=== PATIENT | male | born 1960 | race Caucasian/White ===

== ENCOUNTER 2024-04-23 01:55 | Inpatient (IN) | payer OTHER ==
[2024-04-23] MEDS ORDERED: METOCLOPRAMIDE HCL INJECTION 10 MG/2 ML VIAL ONE (03:19)
[2024-04-23] MEDS ORDERED: FAMOTIDINE 20 MG/50 ML IVPB 20 MG/50 ML MG IVPB ONE (03:20)
[2024-04-23] MEDS: SODIUM CHLORIDE 1,000 ML IV STA (03:27)
[2024-04-23] MEDS: FAMOTIDINE 20 MG/50 ML IVPB 20 MG/50 ML MG IVPB ONE (03:27)
[2024-04-23] MEDS: METOCLOPRAMIDE HCL INJECTION 10 MG/2 ML VIAL IVPUSH ONE (03:27)
[2024-04-23 03:29] LABS: HEMATOCRIT 42.7 % (35.4-49); HEMOGLOBIN 14.2 GM/dL (11.7-16.9); MCHC 33.2 g/dl (32.0-35.9); MEAN CELL VOLUME 90.3 fl (80-96); MEAN PLT VOLUME 7.9 fl (7.5-11.1); PLATELET COUNT 348 10^3/uL (134-434); RBC 4.73 M/mm3 (4.00-5.60); WHITE BLOOD COUNT 11.7 K/mm3 (4.0-10.0)
[2024-04-23 03:46] LABS: POTASSIUM 3.8 mmol/L (3.5-5.1)
[2024-04-23 03:49] LABS: ALBUMIN 3.2 g/dl (3.4-5.0); BLOOD UREA NITROGEN 21.3 mg/dL (7-18); CALCIUM 9.8 mg/dL (8.5-10.1)
[2024-04-23 03:52] LABS: CREATININE 1.3 mg/dL (0.55-1.3)
[2024-04-23 03:54] LABS: BILIRUBIN,TOTAL 0.4 mg/dL (0.2-1); TOT PROT 7.4 g/dl (6.4-8.2)
[2024-04-23 04:10] LABS: EPI CELLS 2 /uL (0-25.1); HYALINE CASTS 0 /uL (0-3.1); PH,URINE 7.5 (5.0-8.0); URINE APPEARANCE CLOUDY; URINE BACTERIA 1796 /uL (0-1359); URINE BILIRUBIN NEGATIVE (NEGATIVE); URINE COLOR YELLOW; URINE GLUCOSE (UA) NEGATIVE (NEGATIVE); URINE KETONE NEGATIVE (NEGATIVE); URINE LEUK ESTERASE 3+ (NEGATIVE); URINE NITRITE NEGATIVE (NEGATIVE); URINE PROTEIN 1+ (NEGATIVE); URINE RBC 23 /uL (0-23.9); URINE UROBILINOGEN 0.2 mg/dL (0.2-1.0); URINE WBC 1217 /uL (0-25.8)
[2024-04-23] MEDS ORDERED: CEFTRIAXONE 1 GM/50 ML BAG ONE (04:48)
[2024-04-23] MEDS: CEFTRIAXONE 1 GM in DEXTROSE 5%-WATER - 50 ML IVPB ONE (05:05)
[2024-04-23 06:46] LABS: ANISOCYTOSIS 1+; MACROCYTOSIS 0
[2024-04-23] MEDS ORDERED: KETOROLAC TROMETHAMINE 30 MG/1 ML VIAL ONE (08:14)
[2024-04-23] MEDS: KETOROLAC TROMETHAMINE 30 MG/1 ML VIAL IVPUSH ONE (08:20)
[2024-04-23] MEDS ORDERED: ACETAMINOPHEN 1000 MG/100 ML BAG IVPB PRN (17:30)
[2024-04-23] MEDS: SODIUM CHLORIDE 1,000 ML IV SCH (20:25)
[2024-04-23] MEDS: HEPARIN NA (PORCINE) 5,000 UNITS/ML 1ML VIAL SQ SCH (21:05)
[2024-04-24] MEDS: GENTAMICIN SO4 80 MG/2 ML VIAL IVPB ONE ×2 (07:31→08:00)
[2024-04-24] MEDS: ceFAZolin SODIUM 1 GM VIAL IVPB ONE ×2 (07:31→07:55)
[2024-04-24] MEDS ORDERED: ROCURONIUM BROMIDE 50 MG/5 ML VIAL ONE (07:37)
[2024-04-24] MEDS ORDERED: PROPOFOL 40 ML ONE (07:37)
[2024-04-24] MEDS ORDERED: FENTANYL CITRATE/PF 50 MCG/ML VIAL ONE ×2 (07:37→08:17)
[2024-04-24] MEDS: LACTATED RINGERS SOLUTION 1,000 ML IV SCH (08:37)
[2024-04-24] MEDS: ACETAMINOPHEN 1000 MG/100 ML BAG IVPB PRN (08:58)
[2024-04-24] MEDS: SODIUM CHLORIDE 1,000 ML IV SCH (09:53)
[2024-04-24] MEDS ORDERED: CEFTRIAXONE 1 GM in DEXTROSE 5%-WATER - 50 ML IVPB SCH (10:00)
[2024-04-24] MEDS: HEPARIN NA (PORCINE) 5,000 UNITS/ML 1ML VIAL SQ SCH (11:17)
[2024-04-24] MEDS: CEFTRIAXONE 1 GM in DEXTROSE 5%-WATER - 50 ML IVPB SCH (11:18)
[2024-04-24] MEDS ORDERED: ARTIFICIAL TEARS OPHTHALMIC DROPS OU PRN (21:55)
[2024-04-25] MEDS: POLYETHYLENE GLYCOL (HEALTHYLAX) 3350 17 GM PACKET PO SCH (10:10)
[2024-04-25 20:03] VITALS: BMI 29.2
[2024-04-25] MEDS: MAG HYDROX/AL HYDROX/SIMETH -MYLANTA- ORAL SUSPENSION PO ONE (23:16)
[2024-04-27 09:26] LABS: HEMATOCRIT 41.1 % (35.4-49); HEMOGLOBIN 14.1 GM/dL (11.7-16.9); MCH 30.6 pg (25.7-33.7); MCHC 34.2 g/dl (32.0-35.9); MEAN CELL VOLUME 89.3 fl (80-96); MEAN PLT VOLUME 7.8 fl (7.5-11.1); PLATELET COUNT 372 10^3/uL (134-434); RBC 4.61 M/mm3 (4.00-5.60); RDW 14.5 % (11.9-15.9); WHITE BLOOD COUNT 10.5 K/mm3 (4.0-10.0)
[2024-04-27 09:50] LABS: ALBUMIN 2.7 g/dl (3.4-5.0); BLOOD UREA NITROGEN 8.1 mg/dL (7-18)
[2024-04-27 09:53] LABS: CREATININE 0.6 mg/dL (0.55-1.3)
[2024-04-27 09:54] LABS: BILIRUBIN,TOTAL 0.7 mg/dL (0.2-1); TOT PROT 5.9 g/dl (6.4-8.2)
[2024-04-27 09:57] LABS: CALCIUM 8.3 mg/dL (8.5-10.1)
[2024-04-27] MEDS: POTASSIUM CHLORIDE ORAL LIQUID 20 MEQ/15 ML PO ONE (12:34)
[2024-04-27] MEDS: FAMOTIDINE 20 MG TABLET PO ONE (13:15)
[2024-04-27 17:47] VITALS: BP 141/81; PULSE 68; RESP 20; TEMP 98.4
== END 2024-04-27 19:25 | DRG 659 ==
LOC: JER 01:55 → JERBED 09:08 → J6S 19:56
PROVIDERS: ADMIT Internal Medicine; ATTEND Internal Medicine
PROC: 0T768DZ Dilation of Right Ureter with Intraluminal Device, Via Natural or Artificial Opening Endoscopic (ICD-10-PCS; principal; 2024-04-24 07:30)
PROC: BT1DZZZ Fluoroscopy of Right Kidney, Ureter and Bladder (ICD-10-PCS; 2024-04-24 07:30)
DX: N13.6 Pyonephrosis (principal); G80.0 Spastic quadriplegic cerebral palsy; K40.20 Bilateral inguinal hernia, without obstruction or gangrene, not specified as recurrent; K57.90 Diverticulosis of intestine, part unspecified, without perforation or abscess without bleeding; R11.2 Nausea with vomiting, unspecified; K76.9 Liver disease, unspecified
CPT/HCPCS: 36415; 71046-TC-FY; 74177-TC; 74178-TC; 76000-TC-FY; 80053; 81003; 82962; 83690; 84484; 85025; 85027; 86850; 86900; 86901; 87086; 93005; 93010; 94760; 99285-25; C1758; C2617; J0131; J1644; Q9967

== ENCOUNTER 2024-09-23 10:30 | Day surgery (SDC) | payer OTHER ==
[2024-09-21 15:41] VITALS: BMI 29.2
[2024-09-23 12:47] VITALS: RESP 16; TEMP 97.4
[2024-09-23 13:25] VITALS: BP 115/64; PULSE 74
== END 2024-09-23 13:23 ==
LOC: FASU-ENDO 10:30
PROVIDERS: ATTEND Internal Medicine Gastroenterology
PROC: 0DB98ZX Excision of Duodenum, Via Natural or Artificial Opening Endoscopic, Diagnostic (ICD-10-PCS; 2024-09-23)
PROC: 0DB78ZX Excision of Stomach, Pylorus, Via Natural or Artificial Opening Endoscopic, Diagnostic (ICD-10-PCS; 2024-09-23)
PROC: 0DB68ZX Excision of Stomach, Via Natural or Artificial Opening Endoscopic, Diagnostic (ICD-10-PCS; 2024-09-23)
PROC: 0DB28ZX Excision of Middle Esophagus, Via Natural or Artificial Opening Endoscopic, Diagnostic (ICD-10-PCS; 2024-09-23)
PROC: 0DB48ZX Excision of Esophagogastric Junction, Via Natural or Artificial Opening Endoscopic, Diagnostic (ICD-10-PCS; 2024-09-23)
PROC: 0DJD8ZZ Inspection of Lower Intestinal Tract, Via Natural or Artificial Opening Endoscopic (ICD-10-PCS; principal; 2024-09-23 11:56)
DX: Z12.11 Encounter for screening for malignant neoplasm of colon (principal); K44.9 Diaphragmatic hernia without obstruction or gangrene; K31.7 Polyp of stomach and duodenum; K29.50 Unspecified chronic gastritis without bleeding; K20.90 Esophagitis, unspecified without bleeding; K64.1 Second degree hemorrhoids
CPT/HCPCS: 43239; G0121; 88305-TC; 88342-TC

== ENCOUNTER 2024-11-16 03:02 | Inpatient (IN) | payer OTHER ==
[2024-11-16] MEDS ORDERED: ACETAMINOPHEN INJECTION 100 ML ONE ×3 (03:57→21:26)
[2024-11-16] MEDS ORDERED: FAMOTIDINE 20 MG/50 ML IVPB 20 MG/50 ML MG IVPB ONE (03:58)
[2024-11-16] MEDS ORDERED: MAG HYDROX/AL HYDROX/SIMETH 30 ML UNIT-DOSE CUP ONE (03:58)
[2024-11-16] MEDS ORDERED: ONDANSETRON 4 MG/2 ML VIAL ONE ×2 (03:58→04:43)
[2024-11-16] MEDS: FAMOTIDINE 20 MG/50 ML IVPB 20 MG/50 ML MG IVPB ONE (04:16)
[2024-11-16] MEDS: ONDANSETRON 4 MG/2 ML VIAL IVPUSH ONE ×2 (04:16→04:56)
[2024-11-16] MEDS: ACETAMINOPHEN 1000 MG/100 ML BAG IVPB ONE ×2 (04:16→10:07)
[2024-11-16] MEDS: MAG HYDROX/AL HYDROX/SIMETH 30 ML UNIT-DOSE CUP PO ONE (04:16)
[2024-11-16 04:34] LABS: HEMATOCRIT 49.8 % (35.4-49); HEMOGLOBIN 16.4 GM/dL (11.7-16.9); MCH 30.1 pg (25.7-33.7); MCHC 32.9 g/dl (32.0-35.9); MEAN CELL VOLUME 91.4 fl (80-96); MEAN PLT VOLUME 8.7 fl (7.5-11.1); PLATELET COUNT 363 10^3/uL (134-434); RBC 5.45 M/mm3 (4.00-5.60); WHITE BLOOD COUNT 19.2 K/mm3 (4.0-10.0)
[2024-11-16 04:53] LABS: POTASSIUM 4.3 mmol/L (3.5-5.1)
[2024-11-16 04:55] LABS: CALCIUM 10.3 mg/dL (8.5-10.1)
[2024-11-16 04:56] LABS: BLOOD UREA NITROGEN 23.5 mg/dL (7-18)
[2024-11-16 04:59] LABS: CREATININE 0.9 mg/dL (0.55-1.3)
[2024-11-16 05:00] LABS: BILIRUBIN,TOTAL 0.6 mg/dL (0.2-1); TOT PROT 8.4 g/dl (6.4-8.2)
[2024-11-16] MEDS ORDERED: morphine SULFATE 4 MG/ML VIAL ONE ×2 (06:25→09:47)
[2024-11-16] MEDS: morphine CARPU-JECT 4 MG/1 ML DISP.SYRIN IVPUSH ONE ×2 (06:49→10:38)
[2024-11-16 07:23] LABS: LACTIC ACID 2.1 mmol/L (0.4-2.0)
[2024-11-16 08:14] LABS: INR 1.09 (0.83-1.09); PROTHROMBIN TIME (PATIENT) 12.5 SEC (9.7-13.0)
[2024-11-16 08:17] LABS: ACTIVATED PTT 33.2 SECONDS (25.2-36.5)
[2024-11-16 08:23] LABS: URINE APPEARANCE CLOUDY; URINE BILIRUBIN NEGATIVE (NEGATIVE); URINE COLOR YELLOW; URINE GLUCOSE (UA) NEGATIVE (NEGATIVE)
[2024-11-16 08:24] LABS: PH,URINE 5.5 (5.0-8.0); URINE KETONE 3+ (NEGATIVE); URINE LEUK ESTERASE TRACE (NEGATIVE); URINE NITRITE NEGATIVE (NEGATIVE); URINE PROTEIN 3+ (NEGATIVE)
[2024-11-16] MEDS ORDERED: LIDOCAINE HCL 2% JELLY 6 ML TP ONE (09:17)
[2024-11-16] MEDS ORDERED: PANTOPRAZOLE SODIUM 40 MG/100 ML BAG IVPB ONE ×2 (09:47→10:02)
[2024-11-16] MEDS: SODIUM CHLORIDE 0.9% 500 ML INFUS.BAG IV ONE (09:57)
[2024-11-16] MEDS ORDERED: PANTOPRAZOLE SODIUM 40 MG VIAL ONE (10:09)
[2024-11-16] MEDS: PANTOPRAZOLE SODIUM 40 MG VIAL IVPUSH ONE (10:35)
[2024-11-16] MEDS ORDERED: PIPERACILLIN/TAZOB 4.5 GM 4.5 GM/100 ML BAG IVPB ONE ×2 (11:41→21:26)
[2024-11-16] MEDS: PIPERACILLIN/TAZOB 3.375 GM 4.5 GM in DEXTROSE 5%-WATER - 50 ML IVPB ONE (11:49)
[2024-11-16] MEDS ORDERED: VANCOMYCIN 1 GM PREMIX (F) 1 GM/200 ML BAG ONE (12:45)
[2024-11-16] MEDS: VANCOMYCIN 1,000 MG in DEXTROSE 5%-WATER - 250 ML IVPB ONE (13:07)
[2024-11-16] MEDS: VANCOMYCIN/WATER FOR INJ (PEG) 1,000 MG/200 ML BAG IVPB ONE (13:09)
[2024-11-16] MEDS: AMINO ACIDS 4.25%/D5W 1,000 ML IV SCH (14:56)
[2024-11-16] MEDS: LACTATED RINGERS SOLUTION 1,000 ML/1,000 ML INFUS.BAG IV SCH (14:56)
[2024-11-16] MEDS ORDERED: PIPERACILLIN/TAZOB 3.375 GM 3.375 GM/50 ML BAG IVPB ONE (18:28)
[2024-11-16] MEDS: DEXTROSE 5%-LACTATED RINGERS 1,000 ML IV SCH (18:31)
[2024-11-16] MEDS: PIPERACILLIN/TAZOB 3.375 GM 3.375 GM in DEXTROSE 5%-WATER - 50 ML IVPB SCH (18:38)
[2024-11-16] MEDS ORDERED: MORPHINE SULFATE 2 MG/ML SYRINGE ONE (18:39)
[2024-11-16] MEDS: MORPHINE SULFATE 2 MG/ML SYRINGE IVPUSH PRN (18:48)
[2024-11-16] MEDS: ACETAMINOPHEN 1000 MG/100 ML BAG IVPB PRN (21:35)
[2024-11-16] MEDS: PIPERACILLIN/TAZOB 4.5 GM 4.5 GM/100 ML BAG IVPB SCH (22:00)
[2024-11-16] MEDS ORDERED: diazePAM CARPU-JECT 10 MG/2 ML DISP.SYRIN ONE (23:02)
[2024-11-16] MEDS: diazePAM CARPU-JECT 10 MG/2 ML DISP.SYRIN IVPUSH ONE (23:12)
[2024-11-17] MEDS ORDERED: FAMOTIDINE 10 MG/ML VIAL IVPB ONE (00:14)
[2024-11-17] MEDS: FAMOTIDINE 20 MG/50 ML IVPB 20 MG/50 ML MG IVPB ONE (00:29)
[2024-11-17 04:25] VITALS: BMI 28.5
[2024-11-17 07:03] LABS: POTASSIUM 3.5 mmol/L (3.5-5.1)
[2024-11-17 07:09] LABS: BLOOD UREA NITROGEN 20.1 mg/dL (7-18)
[2024-11-17 07:12] LABS: CREATININE 0.9 mg/dL (0.55-1.3)
[2024-11-17 07:13] LABS: PHOSPHOROUS 2.5 mg/dL (2.5-4.9)
[2024-11-17 07:14] LABS: ALBUMIN 2.7 g/dl (3.4-5.0); BILIRUBIN,TOTAL 0.6 mg/dL (0.2-1); CALCIUM 8.7 mg/dL (8.5-10.1); TOT PROT 6.2 g/dl (6.4-8.2)
[2024-11-17 07:15] LABS: BASO % 0.1 % (0-2.0); HEMATOCRIT 43.7 % (35.4-49); HEMOGLOBIN 14.7 GM/dL (11.7-16.9); LYMPH % 5.8 % (8-40); MCH 30.5 pg (25.7-33.7); MCHC 33.7 g/dl (32.0-35.9); MEAN CELL VOLUME 90.6 fl (80-96); MEAN PLT VOLUME 8.8 fl (7.5-11.1); MONO % 4.9 % (3.8-10.2); NEUT % 89.2 % (42.8-82.8); PLATELET COUNT 300 10^3/uL (134-434); RBC 4.82 M/mm3 (4.00-5.60); RDW 14.6 % (11.9-15.9); WHITE BLOOD COUNT 13.1 K/mm3 (4.0-10.0)
[2024-11-17] MEDS ORDERED: guaiFENesin/D-METHORPHAN HB 10 ML UNIT-DOSE CUPS PO PRN (10:50)
[2024-11-17] MEDS: BISACODYL 10 MG SUPP.RECT PR ONE (12:06)
[2024-11-17] MEDS: ENOXAPARIN NA (PORCINE) 40 MG/0.4 ML DISP.SYRIN SQ SCH (18:51)
[2024-11-18 07:51] LABS: POTASSIUM 3.4 mmol/L (3.5-5.1)
[2024-11-18 08:02] LABS: ALBUMIN 2.5 g/dl (3.4-5.0); BLOOD UREA NITROGEN 17.6 mg/dL (7-18); CALCIUM 8.5 mg/dL (8.5-10.1)
[2024-11-18 08:04] LABS: MAGNESIUM 2.3 mg/dL (1.8-2.4)
[2024-11-18 08:06] LABS: CREATININE 0.7 mg/dL (0.55-1.3); PHOSPHOROUS 1.9 mg/dL (2.5-4.9)
[2024-11-18 08:08] LABS: BILIRUBIN,TOTAL 0.8 mg/dL (0.2-1); TOT PROT 5.9 g/dl (6.4-8.2)
[2024-11-18 08:22] LABS: BASO % 0.3 % (0-2.0); EOS % 0.1 % (0-4.5); HEMATOCRIT 41.2 % (35.4-49); HEMOGLOBIN 13.7 GM/dL (11.7-16.9); LYMPH % 7.6 % (8-40); MCH 30.2 pg (25.7-33.7); MCHC 33.2 g/dl (32.0-35.9); MEAN CELL VOLUME 91.2 fl (80-96); MEAN PLT VOLUME 9.2 fl (7.5-11.1); MONO % 6.6 % (3.8-10.2); NEUT % 85.4 % (42.8-82.8); PLATELET COUNT 259 10^3/uL (134-434); RBC 4.52 M/mm3 (4.00-5.60); RDW 14.6 % (11.9-15.9); WHITE BLOOD COUNT 9.5 K/mm3 (4.0-10.0)
[2024-11-18] MEDS: ERTAPENEM SODIUM 1 GM in SODIUM CHLORIDE 50 ML IVPB SCH (14:13)
[2024-11-18] MEDS: SODIUM PHOSPHATE/NA BIPHOS 133 ML ENEMA RC ONE (14:14)
[2024-11-18] MEDS: POTASSIUM PHOSPHATE 30 MM in SODIUM CHLORIDE 500 ML IVPB ONE (21:58)
[2024-11-18] MEDS: diazePAM CARPU-JECT 10 MG/2 ML DISP.SYRIN IVPUSH ONE (22:40)
[2024-11-19 07:49] LABS: HEMATOCRIT 42.2 % (35.4-49); MCH 30.1 pg (25.7-33.7); MCHC 33.2 g/dl (32.0-35.9); MEAN CELL VOLUME 90.9 fl (80-96); MEAN PLT VOLUME 8.3 fl (7.5-11.1); PLATELET COUNT 292 10^3/uL (134-434); RBC 4.64 M/mm3 (4.00-5.60); RDW 14.5 % (11.9-15.9); WHITE BLOOD COUNT 11.6 K/mm3 (4.0-10.0)
[2024-11-19 08:08] LABS: POTASSIUM 3.4 mmol/L (3.5-5.1)
[2024-11-19 08:10] LABS: BLOOD UREA NITROGEN 12.2 mg/dL (7-18); CALCIUM 8.6 mg/dL (8.5-10.1)
[2024-11-19 08:13] LABS: CREATININE 0.7 mg/dL (0.55-1.3)
[2024-11-19 08:14] LABS: PHOSPHOROUS 3.5 mg/dL (2.5-4.9)
[2024-11-19] MEDS: DEXTROSE 5%-LACTATED RINGERS 1,000 ML IV SCH (09:03)
[2024-11-19] MEDS: AMINO ACIDS 4.25%/D5W 1,000 ML IV SCH ×2 (14:50→19:35)
[2024-11-19] MEDS: KCL 10 MEQ IVPB 10 MEQ/100 ML INFUS.BAG IVPB SCH (20:47)
[2024-11-19] MEDS: diazePAM 2 MG TABLET NGT ONE (22:15)
[2024-11-20] MEDS: IOHEXOL (OMNIPAQUE IV) 350 MG/ML - 100 ML BOTTLE PO ONE (07:27)
[2024-11-20 07:54] LABS: HEMATOCRIT 42.3 % (35.4-49); HEMOGLOBIN 14.2 GM/dL (11.7-16.9); MCH 30.3 pg (25.7-33.7); MCHC 33.6 g/dl (32.0-35.9); MEAN CELL VOLUME 90.1 fl (80-96); MEAN PLT VOLUME 8.7 fl (7.5-11.1); PLATELET COUNT 304 10^3/uL (134-434); RDW 14.4 % (11.9-15.9)
[2024-11-20 08:04] LABS: CALCIUM 8.7 mg/dL (8.5-10.1)
[2024-11-20 08:05] LABS: BLOOD UREA NITROGEN 25.4 mg/dL (7-18)
[2024-11-20 08:09] LABS: CREATININE 0.6 mg/dL (0.55-1.3)
[2024-11-20 08:35] LABS: BASO % 0.5 % (0-2.0); EOS % 0.2 % (0-4.5); HEMATOCRIT 44.2 % (35.4-49); HEMOGLOBIN 14.1 GM/dL (11.7-16.9); LYMPH % 9.3 % (8-40); MCH 29.3 pg (25.7-33.7); MEAN CELL VOLUME 91.4 fl (80-96); MEAN PLT VOLUME 8.7 fl (7.5-11.1); PLATELET COUNT 319 10^3/uL (134-434); RBC 4.83 M/mm3 (4.00-5.60); RDW 14.8 % (11.9-15.9); WHITE BLOOD COUNT 13.9 K/mm3 (4.0-10.0)
[2024-11-20] MEDS: KCL 10 MEQ IVPB 10 MEQ/100 ML INFUS.BAG IVPB SCH ×2 (09:12→15:43)
[2024-11-20 13:13] LABS: MAGNESIUM 2.2 mg/dL (1.8-2.4)
[2024-11-20 13:17] LABS: PHOSPHOROUS 2.1 mg/dL (2.5-4.9)
[2024-11-20] MEDS: POTASSIUM CHLORIDE 30 MEQ in AMINO ACIDS 4.25%/D5W 1,000 ML IV SCH (21:59)
[2024-11-20] MEDS: ATORVASTATIN CA 40 MG TABLET (FP) PO SCH (22:00)
[2024-11-20] MEDS: BACLOFEN 10 MG TABLET (FP) PO SCH (22:00)
[2024-11-20] MEDS: diazePAM CARPU-JECT 10 MG/2 ML DISP.SYRIN IVPUSH ONE (22:00)
[2024-11-21 08:18] LABS: HEMOGLOBIN 14.2 GM/dL (11.7-16.9); MCH 29.7 pg (25.7-33.7); MEAN CELL VOLUME 89.8 fl (80-96); MEAN PLT VOLUME 8.4 fl (7.5-11.1); PLATELET COUNT 315 10^3/uL (134-434); RBC 4.79 M/mm3 (4.00-5.60); RDW 14.7 % (11.9-15.9); WHITE BLOOD COUNT 13.3 K/mm3 (4.0-10.0)
[2024-11-21 08:27] LABS: POTASSIUM 3.3 mmol/L (3.5-5.1)
[2024-11-21 08:54] LABS: CALCIUM 8.7 mg/dL (8.5-10.1)
[2024-11-21 08:55] LABS: ALBUMIN 2.7 g/dl (3.4-5.0); BLOOD UREA NITROGEN 19.1 mg/dL (7-18); MAGNESIUM 2.1 mg/dL (1.8-2.4)
[2024-11-21 08:57] LABS: CREATININE 0.5 mg/dL (0.55-1.3)
[2024-11-21 08:58] LABS: PHOSPHOROUS 1.7 mg/dL (2.5-4.9)
[2024-11-21 09:00] LABS: BILIRUBIN,TOTAL 0.7 mg/dL (0.2-1); TOT PROT 6.3 g/dl (6.4-8.2)
[2024-11-21] MEDS: MINERAL OIL ENEMA 133 ML ENEMA RC ONE (12:22)
[2024-11-21] MEDS ORDERED: SODIUM CHLORIDE 500 ML IV STA (18:38)
[2024-11-21] MEDS: diazePAM CARPU-JECT 10 MG/2 ML DISP.SYRIN IVPUSH PRN (21:51)
[2024-11-21] MEDS: guaiFENesin/D-METHORPHAN HB 10 ML UNIT-DOSE CUPS PO PRN (21:51)
[2024-11-21] MEDS: NAPH,MB-DB/K PH,MBDB POWDER PACKET PO SCH (21:52)
[2024-11-22 07:09] LABS: BASO % 0.3 % (0-2.0); EOS % 1.2 % (0-4.5); HEMATOCRIT 44.4 % (35.4-49); HEMOGLOBIN 14.2 GM/dL (11.7-16.9); LYMPH % 9.7 % (8-40); MCH 29.1 pg (25.7-33.7); MCHC 31.9 g/dl (32.0-35.9); MEAN CELL VOLUME 91.4 fl (80-96); MEAN PLT VOLUME 8.5 fl (7.5-11.1); MONO % 7.1 % (3.8-10.2); NEUT % 81.7 % (42.8-82.8); PLATELET COUNT 335 10^3/uL (134-434); RBC 4.86 M/mm3 (4.00-5.60); RDW 14.4 % (11.9-15.9); WHITE BLOOD COUNT 13.4 K/mm3 (4.0-10.0)
[2024-11-22 07:30] LABS: POTASSIUM 3.3 mmol/L (3.5-5.1)
[2024-11-22 07:41] LABS: BLOOD UREA NITROGEN 20.9 mg/dL (7-18); CALCIUM 8.9 mg/dL (8.5-10.1)
[2024-11-22 07:42] LABS: ALBUMIN 2.8 g/dl (3.4-5.0)
[2024-11-22 07:43] LABS: TOT PROT 6.3 g/dl (6.4-8.2)
[2024-11-22 07:44] LABS: BILIRUBIN,TOTAL 0.6 mg/dL (0.2-1)
[2024-11-22 07:45] LABS: CREATININE 0.5 mg/dL (0.55-1.3); PHOSPHOROUS 2.4 mg/dL (2.5-4.9)
[2024-11-22] MEDS: PANTOPRAZOLE SODIUM 40 MG VIAL IVPUSH SCH (10:48)
[2024-11-22] MEDS: ALBUTEROL SO4 2.5/IPRATROPIUM 0.5 INH SOL 3 ML VIAL.NEB. NEB SCH (11:15)
[2024-11-23 07:04] LABS: POTASSIUM 3.5 mmol/L (3.5-5.1)
[2024-11-23 07:09] LABS: CALCIUM 8.9 mg/dL (8.5-10.1)
[2024-11-23 07:10] LABS: BLOOD UREA NITROGEN 21.8 mg/dL (7-18)
[2024-11-23 07:13] LABS: CREATININE 0.5 mg/dL (0.55-1.3); PHOSPHOROUS 3.2 mg/dL (2.5-4.9)
[2024-11-23 07:31] LABS: BASO % 0.6 % (0-2.0); EOS % 2.7 % (0-4.5); HEMATOCRIT 45.9 % (35.4-49); HEMOGLOBIN 14.6 GM/dL (11.7-16.9); LYMPH % 11.6 % (8-40); MCH 28.6 pg (25.7-33.7); MCHC 31.8 g/dl (32.0-35.9); MEAN CELL VOLUME 90.1 fl (80-96); MEAN PLT VOLUME 8.6 fl (7.5-11.1); MONO % 6.6 % (3.8-10.2); NEUT % 78.5 % (42.8-82.8); PLATELET COUNT 366 10^3/uL (134-434); RDW 15.2 % (11.9-15.9)
[2024-11-23 07:33] LABS: INR 1.16 (0.83-1.09); PROTHROMBIN TIME (PATIENT) 13.3 SEC (9.7-13.0)
[2024-11-24 07:26] LABS: BASO % 0.7 % (0-2.0); EOS % 2.5 % (0-4.5); HEMATOCRIT 45.3 % (35.4-49); HEMOGLOBIN 14.4 GM/dL (11.7-16.9); LYMPH % 12.3 % (8-40); MCHC 31.7 g/dl (32.0-35.9); MEAN CELL VOLUME 91.4 fl (80-96); MEAN PLT VOLUME 8.8 fl (7.5-11.1); MONO % 5.4 % (3.8-10.2); NEUT % 79.1 % (42.8-82.8); PLATELET COUNT 410 10^3/uL (134-434); RBC 4.96 M/mm3 (4.00-5.60); RDW 14.7 % (11.9-15.9); WHITE BLOOD COUNT 13.5 K/mm3 (4.0-10.0)
[2024-11-24 07:32] LABS: HEMATOCRIT 45.1 % (35.4-49); HEMOGLOBIN 14.3 GM/dL (11.7-16.9); MCHC 31.6 g/dl (32.0-35.9); MEAN CELL VOLUME 91.6 fl (80-96); MEAN PLT VOLUME 8.9 fl (7.5-11.1); PLATELET COUNT 415 10^3/uL (134-434); RBC 4.93 M/mm3 (4.00-5.60); RDW 15.1 % (11.9-15.9); WHITE BLOOD COUNT 13.2 K/mm3 (4.0-10.0)
[2024-11-24 07:45] LABS: POTASSIUM 3.7 mmol/L (3.5-5.1)
[2024-11-24 07:48] LABS: ALBUMIN 2.9 g/dl (3.4-5.0); BLOOD UREA NITROGEN 25.6 mg/dL (7-18); MAGNESIUM 1.9 mg/dL (1.8-2.4)
[2024-11-24 07:51] LABS: CREATININE 0.7 mg/dL (0.55-1.3); PHOSPHOROUS 2.5 mg/dL (2.5-4.9)
[2024-11-24 07:52] LABS: BILIRUBIN,TOTAL 0.7 mg/dL (0.2-1); TOT PROT 6.8 g/dl (6.4-8.2)
[2024-11-24] MEDS ORDERED: MIDAZOLAM HCL 2 MG/2 ML SINGLE DOSE VIAL ONE ×3 (14:06→19:44)
[2024-11-24] MEDS ORDERED: ROCURONIUM BROMIDE 50 MG/5 ML SYRINGE ONE ×3 (14:06→17:11)
[2024-11-24] MEDS ORDERED: PROPOFOL 20 ML ONE (14:07)
[2024-11-24] MEDS ORDERED: DEXAMETHASONE SOD PHOSPHATE 4 MG/1 ML VIAL ONE ×2 (14:07→19:27)
[2024-11-24] MEDS ORDERED: ONDANSETRON 4 MG/2 ML VIAL ONE (14:07)
[2024-11-24] MEDS ORDERED: KETOROLAC TROMETHAMINE 30 MG/1 ML VIAL ONE (14:07)
[2024-11-24] MEDS ORDERED: LIDOCAINE HCL/PF 2% SDV 5ML VIAL ONE (14:07)
[2024-11-24] MEDS ORDERED: HEPARIN NA (PORCINE) 5,000 UNITS/ML 1ML VIAL ONE ×2 (14:07→14:09)
[2024-11-24] MEDS ORDERED: BUPIVACAINE HCL/PF 0.25% (2.5MG/ML) 10 ML VIAL ONE (14:09)
[2024-11-24] MEDS ORDERED: CEFOXITIN SODIUM/DEXTROSE,ISO 2 GM/50 ML BAG ONE (14:09)
[2024-11-24] MEDS ORDERED: ACETAMINOPHEN INJECTION 100 ML ONE (14:10)
[2024-11-24] MEDS: cefOXitin SODIUM 2 GM VIAL (RESTRICTED TO ID) IVPB ONE (15:20)
[2024-11-24] MEDS: BUPIVACAINE HCL/PF 0.25% (2.5MG/ML) 10 ML VIAL IJ ONE (15:27)
[2024-11-24] MEDS ORDERED: MAGNESIUM SULF 50% (8.12 MEQ/2 ML-1 GM VIAL) ONE (15:32)
[2024-11-24] MEDS ORDERED: GLYCOPYRROLATE 0.2 MG/1 ML VIAL ONE (15:38)
[2024-11-24] MEDS ORDERED: HYDROmorphone HCl 2 MG/ML VIAL ONE (15:39)
[2024-11-24] MEDS ORDERED: METOPROLOL TARTRATE 5 MG/5 ML VIAL ONE (15:53)
[2024-11-24] MEDS ORDERED: PHENYLEPHRINE HCL 10 MG/1 ML SINGLE DOSE VIAL ONE (16:14)
[2024-11-24] MEDS ORDERED: LACTATED RINGERS SOLUTION 1,000 ML IV SCH (18:00)
[2024-11-24] MEDS ORDERED: TRANEXAMIC ACID 1000 MG/10 ML VIAL ONE (18:06)
[2024-11-24] MEDS ORDERED: ALBUMIN HUMAN 25% 12.5 GM/50 ML VIAL IV ONE ×2 (18:30→20:23)
[2024-11-24] MEDS ORDERED: SUGAMMADEX SODIUM 200 MG/2 ML VIAL ONE (19:24)
[2024-11-24] MEDS ORDERED: METOCLOPRAMIDE HCL INJECTION 10 MG/2 ML VIAL ONE (19:25)
[2024-11-24] MEDS: MIDAZOLAM HCL 2 MG/2 ML SINGLE DOSE VIAL IVPUSH ONE (21:05)
[2024-11-24] MEDS: LACTATED RINGERS SOLUTION 1,000 ML IV SCH (21:46)
[2024-11-24] MEDS: ATORVASTATIN CA 40 MG TABLET (FP) PO SCH (21:46)
[2024-11-24] MEDS: POTASSIUM CHLORIDE 30 MEQ in AMINO ACIDS 4.25%/D5W 1,000 ML IV SCH (21:46)
[2024-11-24] MEDS: ONDANSETRON 4 MG/2 ML VIAL IVPUSH SCH (21:49)
[2024-11-24 21:58] LABS: HEMATOCRIT 37.5 % (35.4-49); HEMOGLOBIN 12.2 GM/dL (11.7-16.9); MCH 29.4 pg (25.7-33.7); MCHC 32.5 g/dl (32.0-35.9); MEAN CELL VOLUME 90.4 fl (80-96); MEAN PLT VOLUME 8.1 fl (7.5-11.1); PLATELET COUNT 332 10^3/uL (134-434); RBC 4.15 M/mm3 (4.00-5.60); RDW 14.6 % (11.9-15.9); WHITE BLOOD COUNT 23.6 K/mm3 (4.0-10.0)
[2024-11-24 22:08] LABS: INR 1.17 (0.83-1.09); PROTHROMBIN TIME (PATIENT) 13.4 SEC (9.7-13.0)
[2024-11-24 22:21] LABS: POTASSIUM 4.3 mmol/L (3.5-5.1)
[2024-11-24 22:22] LABS: CALCIUM 8.5 mg/dL (8.5-10.1)
[2024-11-24 22:23] LABS: BLOOD UREA NITROGEN 22.3 mg/dL (7-18)
[2024-11-24 22:26] LABS: CREATININE 0.6 mg/dL (0.55-1.3)
[2024-11-24 22:27] LABS: PHOSPHOROUS 3.4 mg/dL (2.5-4.9)
[2024-11-25] MEDS: METOCLOPRAMIDE HCL INJECTION 10 MG/2 ML VIAL IVPUSH SCH (02:51)
[2024-11-25] MEDS: CEFOXITIN SODIUM/DEXTROSE,ISO 2 GM/50 ML BAG IVPB SCH (03:03)
[2024-11-25] MEDS: DEXMEDETOMIDINE PREMIX 400 MCG/100 ML BAG IVPB SCH (06:05)
[2024-11-25] MEDS: ALBUTEROL SO4 2.5/IPRATROPIUM 0.5 INH SOL 3 ML VIAL.NEB. NEB SCH (07:40)
[2024-11-25 07:56] LABS: HEMATOCRIT 38.9 % (35.4-49); HEMOGLOBIN 12.5 GM/dL (11.7-16.9); MCH 29.2 pg (25.7-33.7); MEAN PLT VOLUME 8.9 fl (7.5-11.1); PLATELET COUNT 371 10^3/uL (134-434); RBC 4.28 M/mm3 (4.00-5.60); RDW 14.5 % (11.9-15.9); WHITE BLOOD COUNT 14.8 K/mm3 (4.0-10.0)
[2024-11-25 08:11] LABS: POTASSIUM 4.8 mmol/L (3.5-5.1)
[2024-11-25 08:12] LABS: ALBUMIN 2.8 g/dl (3.4-5.0); BLOOD UREA NITROGEN 16.8 mg/dL (7-18); CALCIUM 8.7 mg/dL (8.5-10.1)
[2024-11-25 08:13] LABS: MAGNESIUM 1.9 mg/dL (1.8-2.4)
[2024-11-25 08:15] LABS: CREATININE 0.8 mg/dL (0.55-1.3)
[2024-11-25 08:16] LABS: PHOSPHOROUS 3.2 mg/dL (2.5-4.9)
[2024-11-25 08:17] LABS: BILIRUBIN,TOTAL 0.6 mg/dL (0.2-1); TOT PROT 5.9 g/dl (6.4-8.2)
[2024-11-25 09:56] LABS: ANISOCYTOSIS 0; HELMET CELLS 0; HOWELL-JOLLY BODIES 0; MACROCYTOSIS 0; OVALOCYTE 0; ROULEAU 0; SICKELED CELLS 0; TARGET CELLS 0; TEAR DROP CELLS 0; TOXIC GRANULATION 0
[2024-11-25] MEDS: ERTAPENEM SODIUM 1 GM in SODIUM CHLORIDE 50 ML IVPB SCH (10:24)
[2024-11-25] MEDS: PANTOPRAZOLE SODIUM 40 MG VIAL IVPUSH SCH (10:24)
[2024-11-25] MEDS ORDERED: ONDANSETRON 4 MG/2 ML VIAL IVPUSH PRN (13:40)
[2024-11-25] MEDS: AMINO ACIDS 4.25%/D5W 1,000 ML IV SCH ×2 (14:39)
[2024-11-25] MEDS: ONDANSETRON 4 MG/2 ML VIAL IVPUSH SCH (19:01)
[2024-11-25] MEDS: SIMETHICONE 80 MG TAB.CHEW (FP) PO SCH (21:43)
[2024-11-25] MEDS: diazePAM CARPU-JECT 10 MG/2 ML DISP.SYRIN IVPUSH PRN (22:02)
[2024-11-26 06:52] LABS: HEMATOCRIT 35.7 % (35.4-49); HEMOGLOBIN 11.8 GM/dL (11.7-16.9); MCH 29.9 pg (25.7-33.7); MCHC 33.1 g/dl (32.0-35.9); MEAN CELL VOLUME 90.4 fl (80-96); MEAN PLT VOLUME 8.5 fl (7.5-11.1); PLATELET COUNT 314 10^3/uL (134-434); POTASSIUM 3.8 mmol/L (3.5-5.1); RBC 3.95 M/mm3 (4.00-5.60); RDW 14.3 % (11.9-15.9); WHITE BLOOD COUNT 15.3 K/mm3 (4.0-10.0)
[2024-11-26 06:55] LABS: ALBUMIN 2.3 g/dl (3.4-5.0); CALCIUM 8.2 mg/dL (8.5-10.1)
[2024-11-26 06:56] LABS: BLOOD UREA NITROGEN 15.7 mg/dL (7-18)
[2024-11-26 06:59] LABS: CREATININE 0.5 mg/dL (0.55-1.3)
[2024-11-26 07:00] LABS: BILIRUBIN,TOTAL 0.5 mg/dL (0.2-1); TOT PROT 5.3 g/dl (6.4-8.2)
[2024-11-26] MEDS: guaiFENesin/D-METHORPHAN HB 10 ML UNIT-DOSE CUPS PO PRN (09:11)
[2024-11-26] MEDS: ACETAMINOPHEN 1000 MG/100 ML BAG IVPB ONE (09:11)
[2024-11-26 09:37] LABS: MAGNESIUM 1.8 mg/dL (1.8-2.4)
[2024-11-26] MEDS ORDERED: ACETYLCYSTEINE 20% 200MG/ML 30 ML VIAL *FOR ORAL / INH USE ONLY NEB ONE (10:58)
[2024-11-26] MEDS: morphine SULFATE 4 MG/ML VIAL IVPUSH ONE ×2 (11:26→18:40)
[2024-11-26] MEDS: ALBUTEROL SO4 0.083% IH SOL 2.5 MG/3 ML VIAL.NEB. NEB SCH ×2 (11:29→11:42)
[2024-11-26] MEDS: ACETYLCYSTEINE 20% 200MG/ML 4 ML VIAL *FOR ORAL / INH USE ONLY NEB SCH (11:29)
[2024-11-26] MEDS: ACETYLCYSTEINE 20% 200MG/ML 4 ML VIAL *FOR ORAL / INH USE ONLY NEB ONE (11:39)
[2024-11-26] MEDS: POTASSIUM PHOSPHATE 30 MM in SODIUM CHLORIDE 250 ML IVPB ONE (14:07)
[2024-11-27] MEDS: ACETYLCYSTEINE 20% 200MG/ML 4 ML VIAL *FOR ORAL / INH USE ONLY NEB ONE (03:55)
[2024-11-27] MEDS: ALBUTEROL SO4 0.083% IH SOL 2.5 MG/3 ML VIAL.NEB. NEB ONE (03:58)
[2024-11-27 05:15] LABS: ARTERIAL BLD GAS O2 SATURATION 84.2 % (95-98); ARTERIAL BLOOD GAS BASE EXCESS 2.4 mmol/L (-2-2); ARTERIAL BLOOD GAS PO2 45.8 mmHg (80-100); ARTERIAL BLOOD GAS pH 7.456 (7.350-7.450)
[2024-11-27] MEDS: LACTATED RINGERS SOLUTION 1000 ML INFUS.BAG IV ONE (05:36)
[2024-11-27] MEDS: NOREPINEPHRINE BITARTRATE/D5W 8 MG/250 ML BAG IVPB SCH (05:36)
[2024-11-27 07:01] LABS: HEMATOCRIT 36.2 % (35.4-49); HEMOGLOBIN 11.6 GM/dL (11.7-16.9); MCH 29.3 pg (25.7-33.7); MEAN CELL VOLUME 91.5 fl (80-96); MEAN PLT VOLUME 8.6 fl (7.5-11.1); PLATELET COUNT 373 10^3/uL (134-434); RBC 3.96 M/mm3 (4.00-5.60); RDW 14.3 % (11.9-15.9); WHITE BLOOD COUNT 20.3 K/mm3 (4.0-10.0)
[2024-11-27 07:15] LABS: POTASSIUM 3.9 mmol/L (3.5-5.1)
[2024-11-27 07:19] LABS: CALCIUM 8.4 mg/dL (8.5-10.1)
[2024-11-27 07:20] LABS: ALBUMIN 2.3 g/dl (3.4-5.0); BLOOD UREA NITROGEN 17.6 mg/dL (7-18)
[2024-11-27 07:21] LABS: ARTERIAL BLD GAS O2 SATURATION 92.4 % (95-98); ARTERIAL BLOOD GAS BASE EXCESS 2.3 mmol/L (-2-2); ARTERIAL BLOOD GAS PO2 59.9 mmHg (80-100); ARTERIAL BLOOD GAS pH 7.461 (7.350-7.450)
[2024-11-27 07:23] LABS: CREATININE 0.6 mg/dL (0.55-1.3)
[2024-11-27 07:25] LABS: BILIRUBIN,TOTAL 0.9 mg/dL (0.2-1); TOT PROT 5.4 g/dl (6.4-8.2)
[2024-11-27 07:27] LABS: ALLENS TEST POSITIVE
[2024-11-27 08:41] LABS: ANISOCYTOSIS 0; MACROCYTOSIS 0
[2024-11-27] MEDS ORDERED: RAPID SEQUENCE INTUBATION KIT NR ONE (09:35)
[2024-11-27] MEDS: ENOXAPARIN NA (PORCINE) 40 MG/0.4 ML DISP.SYRIN SQ SCH (10:12)
[2024-11-27] MEDS: morphine SULFATE 4 MG/ML VIAL IVPUSH PRN (17:10)
[2024-11-27] MEDS: PIPERACILLIN/TAZOB 3.375 GM 3.375 GM in DEXTROSE 5%-WATER - 50 ML IVPB SCH (17:11)
[2024-11-28] MEDS: ACETAMINOPHEN 1000 MG/100 ML BAG IVPB PRN (00:18)
[2024-11-28 07:30] LABS: VENOUS BASE EXCESS 3.5 mmol/L (-2-2); VENOUS O2 SATURATION 71.1 % (70-80); VENOUS PCO2 48.9 mmHg (38-52); VENOUS PH 7.395 (7.310-7.410)
[2024-11-28 07:39] LABS: BASO % 0.7 % (0-2.0); HEMATOCRIT 36.1 % (35.4-49); HEMOGLOBIN 11.5 GM/dL (11.7-16.9); MEAN CELL VOLUME 90.7 fl (80-96); MEAN PLT VOLUME 8.8 fl (7.5-11.1); NEUT % 83.3 % (42.8-82.8); PLATELET COUNT 336 10^3/uL (134-434); RBC 3.98 M/mm3 (4.00-5.60); RDW 14.8 % (11.9-15.9); WHITE BLOOD COUNT 13.2 K/mm3 (4.0-10.0)
[2024-11-28 08:56] LABS: ALBUMIN 2.4 g/dl (3.4-5.0); BILIRUBIN,TOTAL 0.6 mg/dL (0.2-1); BLOOD UREA NITROGEN 21.2 mg/dL (7-18); CALCIUM 8.7 mg/dL (8.5-10.1); CREATININE 0.6 mg/dL (0.55-1.3); POTASSIUM 3.8 mmol/L (3.5-5.1); TOT PROT 5.8 g/dl (6.4-8.2)
[2024-11-28] MEDS: POLYETHYLENE GLYCOL (HEALTHYLAX) 3350 17 GM PACKET PO ONE (12:47)
[2024-11-28] MEDS: BISACODYL 5 MG TABLET.DR (FP) PO ONE (12:47)
[2024-11-28] MEDS: DOCUSATE SODIUM 100 MG CAPSULE (FP) PO SCH (22:01)
[2024-11-28] MEDS: POLYETHYLENE GLYCOL (HEALTHYLAX) 3350 17 GM PACKET PO SCH (22:02)
[2024-11-29 08:17] LABS: BASO % 0.6 % (0-2.0); EOS % 3.4 % (0-4.5); HEMATOCRIT 33.7 % (35.4-49); HEMOGLOBIN 11.4 GM/dL (11.7-16.9); MCHC 33.7 g/dl (32.0-35.9); MEAN PLT VOLUME 8.5 fl (7.5-11.1); PLATELET COUNT 357 10^3/uL (134-434); RBC 3.79 M/mm3 (4.00-5.60); RDW 14.6 % (11.9-15.9); WHITE BLOOD COUNT 11.4 K/mm3 (4.0-10.0)
[2024-11-29 08:35] LABS: POTASSIUM 3.5 mmol/L (3.5-5.1)
[2024-11-29 08:43] LABS: ALBUMIN 2.3 g/dl (3.4-5.0); BLOOD UREA NITROGEN 19.4 mg/dL (7-18)
[2024-11-29 08:44] LABS: BILIRUBIN,TOTAL 0.5 mg/dL (0.2-1); TOT PROT 5.4 g/dl (6.4-8.2)
[2024-11-29 08:45] LABS: CALCIUM 8.8 mg/dL (8.5-10.1); CREATININE 0.6 mg/dL (0.55-1.3)
[2024-11-29] MEDS: PANTOPRAZOLE 40 MG TABLET PO SCH (09:02)
[2024-11-29] MEDS: POTASSIUM CHLORIDE ORAL LIQUID 20 MEQ/15 ML PO ONE (11:43)
[2024-11-29] MEDS: VANCOMYCIN 1 GM PREMIX (F) 1 GM/200 ML BAG IVPB SCH (15:25)
[2024-11-29] MEDS: ACETAMINOPHEN 1000 MG/100 ML BAG IVPB PRN (23:48)
[2024-11-30 08:00] LABS: EOS % 4.7 % (0-4.5); HEMATOCRIT 32.9 % (35.4-49); HEMOGLOBIN 10.9 GM/dL (11.7-16.9); LYMPH % 13.9 % (8-40); MCH 29.6 pg (25.7-33.7); MCHC 33.2 g/dl (32.0-35.9); MEAN CELL VOLUME 89.4 fl (80-96); MEAN PLT VOLUME 8.2 fl (7.5-11.1); MONO % 10.6 % (3.8-10.2); NEUT % 69.8 % (42.8-82.8); PLATELET COUNT 380 10^3/uL (134-434); RBC 3.68 M/mm3 (4.00-5.60); RDW 14.7 % (11.9-15.9); WHITE BLOOD COUNT 9.8 K/mm3 (4.0-10.0)
[2024-11-30 08:20] LABS: POTASSIUM 3.9 mmol/L (3.5-5.1)
[2024-11-30 08:27] LABS: ALBUMIN 2.2 g/dl (3.4-5.0); BLOOD UREA NITROGEN 18.3 mg/dL (7-18); CALCIUM 8.7 mg/dL (8.5-10.1); MAGNESIUM 1.8 mg/dL (1.8-2.4)
[2024-11-30 08:30] LABS: CREATININE 0.6 mg/dL (0.55-1.3)
[2024-11-30 08:31] LABS: BILIRUBIN,TOTAL 0.4 mg/dL (0.2-1); TOT PROT 5.5 g/dl (6.4-8.2)
[2024-11-30] MEDS: diazePAM CARPU-JECT 10 MG/2 ML DISP.SYRIN IVPUSH PRN (22:46)
[2024-12-01 07:58] LABS: HEMATOCRIT 32.6 % (35.4-49); HEMOGLOBIN 11.1 GM/dL (11.7-16.9); MCH 30.3 pg (25.7-33.7); MEAN CELL VOLUME 89.3 fl (80-96); MEAN PLT VOLUME 8.3 fl (7.5-11.1); PLATELET COUNT 383 10^3/uL (134-434); RBC 3.65 M/mm3 (4.00-5.60); RDW 14.8 % (11.9-15.9); WHITE BLOOD COUNT 9.7 K/mm3 (4.0-10.0)
[2024-12-01 08:43] LABS: POTASSIUM 3.8 mmol/L (3.5-5.1)
[2024-12-01 08:56] LABS: ALBUMIN 2.4 g/dl (3.4-5.0)
[2024-12-01 08:57] LABS: BLOOD UREA NITROGEN 11.9 mg/dL (7-18); MAGNESIUM 1.8 mg/dL (1.8-2.4)
[2024-12-01 09:00] LABS: CREATININE 0.6 mg/dL (0.55-1.3)
[2024-12-01 09:01] LABS: BILIRUBIN,TOTAL 0.6 mg/dL (0.2-1); TOT PROT 5.8 g/dl (6.4-8.2)
[2024-12-01 09:19] LABS: ANISOCYTOSIS 0; MACROCYTOSIS 0
[2024-12-01] MEDS ORDERED: POLYETHYLENE GLYCOL (HEALTHYLAX) 3350 17 GM PACKET PO PRN (19:54)
[2024-12-02] MEDS: ALBUTEROL SO4 0.083% IH SOL 2.5 MG/3 ML VIAL.NEB. NEB SCH (07:35)
[2024-12-02] MEDS: ACETYLCYSTEINE 20% 200MG/ML 4 ML VIAL *FOR ORAL / INH USE ONLY NEB SCH (07:35)
[2024-12-02 08:53] LABS: HEMATOCRIT 31.5 % (35.4-49); HEMOGLOBIN 10.6 GM/dL (11.7-16.9); MCH 30.1 pg (25.7-33.7); MCHC 33.7 g/dl (32.0-35.9); MEAN CELL VOLUME 89.2 fl (80-96); MEAN PLT VOLUME 8.1 fl (7.5-11.1); PLATELET COUNT 376 10^3/uL (134-434); RBC 3.53 M/mm3 (4.00-5.60); RDW 14.7 % (11.9-15.9); WHITE BLOOD COUNT 8.8 K/mm3 (4.0-10.0)
[2024-12-02 09:17] LABS: POTASSIUM 3.8 mmol/L (3.5-5.1)
[2024-12-02 09:21] LABS: CALCIUM 8.9 mg/dL (8.5-10.1)
[2024-12-02 09:22] LABS: ALBUMIN 2.4 g/dl (3.4-5.0); BLOOD UREA NITROGEN 6.7 mg/dL (7-18)
[2024-12-02 09:25] LABS: CREATININE 0.6 mg/dL (0.55-1.3)
[2024-12-02 09:26] LABS: BILIRUBIN,TOTAL 0.5 mg/dL (0.2-1); TOT PROT 5.7 g/dl (6.4-8.2)
[2024-12-02] MEDS: SIMETHICONE 80 MG TAB.CHEW (FP) PO SCH (10:14)
[2024-12-02] MEDS: VANCOMYCIN 1 GM PREMIX (F) 1 GM/200 ML BAG IVPB SCH (10:14)
[2024-12-02] MEDS: PANTOPRAZOLE 40 MG TABLET PO SCH (10:14)
[2024-12-02] MEDS: ENOXAPARIN NA (PORCINE) 40 MG/0.4 ML DISP.SYRIN SQ SCH (10:14)
[2024-12-02] MEDS: ATORVASTATIN CA 40 MG TABLET (FP) PO SCH (21:45)
[2024-12-02] MEDS: guaiFENesin/D-METHORPHAN HB 10 ML UNIT-DOSE CUPS PO PRN (21:48)
[2024-12-02] MEDS: diazePAM CARPU-JECT 10 MG/2 ML DISP.SYRIN IVPUSH PRN (23:41)
[2024-12-03 08:13] LABS: HEMATOCRIT 33.6 % (35.4-49); HEMOGLOBIN 10.8 GM/dL (11.7-16.9); MCH 29.3 pg (25.7-33.7); MCHC 32.1 g/dl (32.0-35.9); MEAN PLT VOLUME 8.2 fl (7.5-11.1); PLATELET COUNT 402 10^3/uL (134-434); RBC 3.69 M/mm3 (4.00-5.60); RDW 14.4 % (11.9-15.9); WHITE BLOOD COUNT 8.3 K/mm3 (4.0-10.0)
[2024-12-03 08:45] LABS: POTASSIUM 3.7 mmol/L (3.5-5.1)
[2024-12-03 08:48] LABS: CALCIUM 8.8 mg/dL (8.5-10.1)
[2024-12-03 08:49] LABS: BLOOD UREA NITROGEN 6.4 mg/dL (7-18)
[2024-12-03 08:52] LABS: CREATININE 0.7 mg/dL (0.55-1.3)
[2024-12-03] MEDS: DOXYCYCLINE HYCLATE 100 MG CAPSULE PO SCH (09:57)
[2024-12-03 15:29] VITALS: BP 112/65; PULSE 64; RESP 18; TEMP 98.2
== END 2024-12-03 19:00 | DRG 853 ==
LOC: JER 03:02 → JERBED 10:48 → J4W 11-17 04:04 → JICU 11-24 20:36 → J4W 11-30 18:25
PROVIDERS: ADMIT Internal Medicine Pulmonary Disease; ATTEND Internal Medicine
PROC: 0DV44ZZ Restriction of Esophagogastric Junction, Percutaneous Endoscopic Approach (ICD-10-PCS; 2024-11-24)
PROC: 0BQT4ZZ Repair Diaphragm, Percutaneous Endoscopic Approach (ICD-10-PCS; principal; 2024-11-24 12:00)
DX: A41.9 Sepsis, unspecified organism (principal); G80.0 Spastic quadriplegic cerebral palsy; J96.01 Acute respiratory failure with hypoxia; J69.0 Pneumonitis due to inhalation of food and vomit; J90 Pleural effusion, not elsewhere classified; J98.11 Atelectasis; N39.0 Urinary tract infection, site not specified; K52.89 Other specified noninfective gastroenteritis and colitis; K80.20 Calculus of gallbladder without cholecystitis without obstruction; E87.6 Hypokalemia; K44.9 Diaphragmatic hernia without obstruction or gangrene; L89.152 Pressure ulcer of sacral region, stage 2; I95.9 Hypotension, unspecified; E78.5 Hyperlipidemia, unspecified; M06.9 Rheumatoid arthritis, unspecified
CPT/HCPCS: 0241U-QW; 36415; 36600; 71045-TC-FY; 71250-TC; 73502-TC-LT-FY; 74018-TC-FY; 74019-TC-FY; 74177-TC; 80048; 80053; 80061; 81003; 82803; 82962; 83605; 83735; 84100; 84134; 84484; 85025; 85027; 85610; 85730; 86140; 86850; 86900; 86901; 87040; 87070; 87086; 87186; 87205; 87481; 93005; 93010; 93971; 94002; 94010; 94640; 94660; 94760; 97161-GP; 99285-25; G0480; J0131; J0475; J1644; Q9967